=== PATIENT | male | born 1955 | race Asian ===

== ENCOUNTER 2016-07-27 21:15 | Emergency (ER) | payer OTHER ==
[~2016-07-27] VITALS: Ht 167.6 cm; Wt 61.9 kg
[~2016-07-27 21:15] MED LIST: ARIP15TA5 PO; GABA400C PO; NOV7030 SUBQ
[2016-07-27 21:22] VITALS: BP 90/60
--- NOTE | 2016-07-27 21:36 | NUR ---
TO ER BED 3
--- NOTE | 2016-07-27 21:40 | NUR ---
PT STATES HE HAS PAIN ALL OVER. PAIN 02/17 PT STATES HE IS DIABETES AND SCHIZOPHRENIC, DEVELOPEMENTALLY DELAYED BS 507, DR GARCIA NOTIFIED
[2016-07-27] MEDS ORDERED: MORPHINE SULFATE 4 MG/ML SYR IVP ONE (22:15)
[2016-07-27] MEDS ORDERED: ONDANSETRON 4 MG/2 ML VIAL IVP ONE (22:15)
[2016-07-27] MEDS ORDERED: NACL 0.9% 1,000 ML IV ONE (22:15)
--- NOTE | 2016-07-27 22:20 | NUR ---
Patient being evaluated by physician at bedside.
[2016-07-27 22:46] LABS: APPEARANCE,URINE HAZY (CLEAR); BILIRUBIN,URINE NEGATIVE (NEGATIVE); BLOOD, URINE NEGATIVE (NEGATIVE); COLOR,URINE YELLOW (YELLOW); LEUKOCYTE ESTERASE ,URINE NEGATIVE (NEGATIVE); NITRITE, URINE NEGATIVE (NEGATIVE); PH,URINE 5.5 (5.0-9.0); PROTEIN,URINE TRACE (NEGATIVE); UGLUCOSE 3+ (NEGATIVE); UROBILINOGEN,URINE 0.2 EU/dL (0.2 - 1)
[2016-07-27 23:09] LABS: ALBUMIN 3.6 g/dL (3.4-5.0); ANION GAP 9.9 (8-16); BASOPHILS # (AUTO) 0.1 K/uL (0.00-0.22); BASOPHILS % (AUTO) 2.7 % (0.0-2.0); CALCIUM 8.5 mg/dL (8.5-10.1); CARBON DIOXIDE 27.9 mmol/L (21-32); CREATININE 1.9 mg/dL (0.6-1.3); EOSINOPHILS # (AUTO) 0.1 K/uL (0-0.4); EOSINOPHILS % (AUTO) 3.4 % (0.0-4.0); HEMATOCRIT 38.5 % (36-52); HEMOGLOBIN 12.7 g/dL (12.0-18.0); LYMPHOCYTES # (AUTO) 1.2 K/uL (2.0-11.5); MEAN CORPUSCULAR HEMOGLOBIN 28 pg (27-31); MEAN CORPUSCULAR HGB CONC 33 g/dL (33-37); MEAN CORPUSCULAR VOLUME 85 fL (80-94); MONOCYTES # (AUTO) 0.3 K/uL (0.8-1.0); NEUTROPHILS # (AUTO) 2.5 K/uL (1.8-7.7); NEUTROPHILS % (AUTO) 59.9 % (42.2-75.2); PLATELET COUNT (AUTO) 210 K/uL (140-450); POTASSIUM 5.8 mmol/L (3.5-5.1); RED BLOOD CELL COUNT(AUTO) 4.56 MIL/uL (4.20-6.10); RED CELL DISTRIBUTION WIDTH 13.9 % (11.6-13.7); TOTAL BILIRUBIN 0.5 mg/dL (0.0-1.0); TOTAL PROTEIN, SERUM 7.1 g/dL (6.4-8.2); WHITE BLOOD COUNT (AUTO) 4.2 K/uL (4.8-10.8)
[2016-07-27] MEDS ORDERED: HYDROmorphone 1 MG/ML AMP IVP ONE (23:20)
[2016-07-27] MEDS ORDERED: NACL 0.9% 2,000 ML IV ONE (23:20)
[2016-07-27 23:25] LABS: BACTERIA,URINE OCCASSIONAL /HPF (None Seen); HYALINE CASTS, URINE 0-10 /LPF (None Seen); MUCUS,URINE 1+ /LPF (None Seen); RBC,URINE 0-5 (RARE) /HPF (0-5); SQUAMOUS EPITHELIAL CELL,UR 0-3 (FEW) /LPF (0-3 (FEW)); WBC,URINE 0-5 (RARE) /HPF (0-5)
[2016-07-27] MEDS ORDERED: INSULIN HUMAN REGULAR 100 UNITS/ML 10 ML VIAL IVP ONE (23:40)
[2016-07-28 01:41] LABS: ANION GAP 9.2 (8-16); CALCIUM 6.9 mg/dL (8.5-10.1); CARBON DIOXIDE 24.2 mmol/L (21-32); CREATININE 1.4 mg/dL (0.6-1.3); POTASSIUM 4.4 mmol/L (3.5-5.1)
--- NOTE | 2016-07-28 02:01 | NUR ---
IV removed, catheter intact and site benign. Applied folded 4x4 gauze and tape to stop bleeding.
[2016-07-28 02:11] VITALS: BP 136/79
--- NOTE | 2016-07-28 02:11 | NUR ---
Patient discharged with v/s stable. Written and verbal after care instructions given and explained. Patient alert, oriented and verbalized understanding of instructions. Ambulatory with steady gait. All questions addressed prior to discharge. ID band removed. Patient advised to follow up with PMD. Rx of NORCO 5/325MG given. Patient educated on indication of medication including possible reaction and side effects. Opportunity to ask questions provided and answered.
== END 2016-07-28 02:11 | disposition home or self-care (01) ==
LOC: MED 21:15
PROC: 3E033GC Introduction of Other Therapeutic Substance into Peripheral Vein, Percutaneous Approach (ICD-10-PCS; principal; 2016-07-27)
DX: E11.65 Type 2 diabetes mellitus with hyperglycemia (principal); I10 Essential (primary) hypertension; J45.909 Unspecified asthma, uncomplicated; F17.210 Nicotine dependence, cigarettes, uncomplicated; Z79.4 Long term (current) use of insulin
CPT/HCPCS: 36415; 80048; 80053; 81001; 82948; 83690; 85025; 96361; 96372; 96374; 96375; 99285; J1170; J1815; J2270; J2405; J7030

== ENCOUNTER 2016-09-01 17:03 | Emergency (ER) | payer OTHER ==
[~2016-09-01] VITALS: Ht 167.6 cm; Wt 61.2 kg
[2016-09-01 17:17] VITALS: BP 95/67
--- NOTE | 2016-09-01 22:30 | NUR ---
PATIENT LEFT WITHOUT BEING SEEN BY DR. SAVAGE. NO FURTHER CARE PROVIDED FOR PATIENT.
--- NOTE | 2016-09-01 22:30 | NUR ---
Ann hamilton in [facility] - 09/02/16 at 0227 by ANSHUL PATIENT LEFT WITHOUT BEING SEEN BY DR. GARCIA. NO FURTHER CARE PROVIDED FOR PATIENT.
== END 2016-09-01 22:30 | disposition left against medical advice (07) ==
LOC: MED 17:03
DX: R53.1 Weakness (principal); Z53.21 Procedure and treatment not carried out due to patient leaving prior to being seen by health care provider

== ENCOUNTER 2016-09-05 22:56 | Emergency (ER) | payer OTHER ==
[~2016-09-05] VITALS: Ht 167.6 cm; Wt 63.5 kg
[~2016-09-05 22:56] MED LIST changes: +ABILIFY15 M1 PO; -ARIP15TA5 PO; +CEPHALEXIN500 M2 PO; -GABA400C PO; +GABAPENTIN300 M2 PO; +HYDROCODONE APA PO; +NEURONTIN400 MG PO; +NORCO 5/325 MG1 TAB PO; -NOV7030 SUBQ; +NOVOLIN 70100 UNITS/ SUBQ; +OXYCONTIN10 MG PO; +PERCOCET 325 MG1 TA4 PO; +PERCOCET 5/3251 TAB PO; +SEROQUEL XR400 MG PO; +TRAMADOL50 MG PO
[2016-09-05 23:08] VITALS: BP 111/74
--- NOTE | 2016-09-06 00:55 | NUR ---
PATIENT AMBULATED TO ER BED 6.
--- NOTE | 2016-09-06 00:55 | NUR ---
PATIENT PRESENTS TO ED WITH C/O BODY ACHES ALL OVER X 4-5 MONTHS, 8/10 PAIN . PT STATES HE WAS DX WITH PANCREATITIS AND SINCE THEN DRANK 1 WEEK AGO 12OZ BEER. PT ALSO STATES HE HAS DIFF SEEINBG,PT DENIES N/V/D; SKIN IS PINK/WARM/DRY; AAOX4 WITH EVEN AND STEADY GAIT; LUNGS CLEAR BL; HR EVEN AND REGULAR; PT DENIES ANY FEVER, CP, SOB, OR COUGH AT THIS TIME; PATIENT STATES PAIN OF 8/10 AT THIS TIME; VSS; PATIENT POSITIONED FOR COMFORT; HOB ELEVATED; BEDRAILS UP X2; BED DOWN. ER MD MADE AWARE OF PT STATUS.
--- NOTE | 2016-09-06 01:19 | NUR ---
Patient being evaluated by physician at bedside.
[2016-09-06] MEDS ORDERED: NACL 0.9% 1,000 ML IV ONE (01:20)
[2016-09-06] MEDS ORDERED: KETOROLAC 30 MG/ML VIAL IVP ONE (01:20)
[2016-09-06] MEDS ORDERED: LORazepam 2 MG/ML VIAL IVP ONE (02:05)
[2016-09-06] MEDS ORDERED: diphenhydrAMINE 50 MG/ML VIAL IVP ONE (02:05)
[2016-09-06 03:14] VITALS: BP 113/63
--- NOTE | 2016-09-06 03:15 | NUR ---
Patient discharged with v/s stable. Written and verbal after care instructions given and explained. Patient alert, oriented and verbalized understanding of instructions. Ambulatory with steady gait. All questions addressed prior to discharge. ID band removed. Patient advised to follow up with PMD. Rx of TRAMADOL HYDROCHLORIDE given. Patient educated on indication of medication including possible reaction and side effects. Opportunity to ask questions provided and answered.
== END 2016-09-06 03:15 | disposition home or self-care (01) ==
LOC: MED 22:56
DX: B34.9 Viral infection, unspecified (principal); J45.909 Unspecified asthma, uncomplicated; E11.9 Type 2 diabetes mellitus without complications; I10 Essential (primary) hypertension; Z79.4 Long term (current) use of insulin
CPT/HCPCS: 36415; 80053; 82948; 83690; 85025; 85610; 85730; 96361; 96374; 96375; 99284; J1200; J1885; J2060

== ENCOUNTER 2016-09-06 04:06 | Emergency (ER) | payer OTHER ==
[~2016-09-06] VITALS: Ht 170.2 cm; Wt 60.8 kg
[2016-09-06 04:13] VITALS: BP 138/82
--- NOTE | 2016-09-06 04:26 | NUR ---
PATIENT BIB BLS TO ER BED 4. Addendum: 09/06/16 at 0708 by MEDDCV PATIENT BIB BLS AND PD TO ER BED 4.
--- NOTE | 2016-09-06 04:26 | NUR ---
61Y M ALEX C/O DRIVING WRONGWAY, PATIENT JUST D/C. STILL WITH BODYACHES. [place] pd was on scene.
[2016-09-06 06:41] VITALS: BP 142/87
--- NOTE | 2016-09-06 06:41 | NUR ---
Patient discharged with v/s stable. Written and verbal after care instructions given and explained. Patient verbalized understanding. Ambulatory with steady gait. All questions addressed prior to discharge. Advised to follow up with PMD.
== END 2016-09-06 06:41 | disposition home or self-care (01) ==
LOC: MED 04:06
DX: R46.89 Other symptoms and signs involving appearance and behavior (principal); J45.909 Unspecified asthma, uncomplicated; E11.9 Type 2 diabetes mellitus without complications; I10 Essential (primary) hypertension; Z79.4 Long term (current) use of insulin

== ENCOUNTER 2016-10-16 02:40 | Emergency (ER) | payer OTHER ==
[~2016-10-16] VITALS: Ht 167.6 cm; Wt 68.0 kg
[~2016-10-16 02:40] MED LIST changes: -ABILIFY15 M1 PO; +ARIP15TA5 PO; -CEPHALEXIN500 M2 PO; +GABA400C PO; -GABAPENTIN300 M2 PO; -HYDROCODONE APA PO; -NEURONTIN400 MG PO; -NORCO 5/325 MG1 TAB PO; +NOV7030 SUBQ; -NOVOLIN 70100 UNITS/ SUBQ; -OXYCONTIN10 MG PO; -PERCOCET 325 MG1 TA4 PO; -PERCOCET 5/3251 TAB PO; -SEROQUEL XR400 MG PO; -TRAMADOL50 MG PO
--- NOTE | 2016-10-16 02:43 | NUR ---
PT ALEX BLS. TAKEN TO BED 5
[2016-10-16 02:50] VITALS: BP 185/92
--- NOTE | 2016-10-16 02:50 | NUR ---
61Y M BIB [facility] C/O HAND AND FEET PAIN WITH HIGH BLOOD SUGAR 487MG/DL, HIGH BP 194/100.
[2016-10-16] MEDS ORDERED: NACL 0.9% 1,000 ML IV ONE (03:10)
[2016-10-16 03:20] LABS: BASOPHILS # (AUTO) 0.1 K/uL (0.00-0.22); BASOPHILS % (AUTO) 2.5 % (0.0-2.0); EOSINOPHILS # (AUTO) 0.3 K/uL (0-0.4); EOSINOPHILS % (AUTO) 7.2 % (0.0-4.0); HEMATOCRIT 32.8 % (36-52); HEMOGLOBIN 10.3 g/dL (12.0-18.0); LYMPHOCYTES # (AUTO) 0.8 K/uL (2.0-11.5); LYMPHOCYTES % (AUTO) 19.7 % (20.5-51.1); MEAN CORPUSCULAR HEMOGLOBIN 26 pg (27-31); MEAN CORPUSCULAR HGB CONC 32 g/dL (33-37); MEAN CORPUSCULAR VOLUME 83 fL (80-94); MONOCYTES # (AUTO) 0.2 K/uL (0.8-1.0); MONOCYTES % (AUTO) 5.6 % (1.7-9.3); NEUTROPHILS # (AUTO) 2.9 K/uL (1.8-7.7); PLATELET COUNT (AUTO) 218 K/uL (140-450); RED BLOOD CELL COUNT(AUTO) 3.95 MIL/uL (4.20-6.10); RED CELL DISTRIBUTION WIDTH 14.3 % (11.6-13.7); WHITE BLOOD COUNT (AUTO) 4.3 K/uL (4.8-10.8)
[2016-10-16 03:36] LABS: ALBUMIN 3.6 g/dL (3.4-5.0); ANION GAP 14.5 (8-16); CALCIUM 8.4 mg/dL (8.5-10.1); CARBON DIOXIDE 23.4 mmol/L (21-32); CREATININE 1.6 mg/dL (0.6-1.3); POTASSIUM 4.9 mmol/L (3.5-5.1); TOTAL BILIRUBIN 0.3 mg/dL (0.0-1.0); TOTAL PROTEIN, SERUM 7.4 g/dL (6.4-8.2)
--- NOTE | 2016-10-16 03:38 | NUR ---
Dr. Comer evaluating patient at bedside.
[2016-10-16] MEDS ORDERED: MORPHINE SULFATE 4 MG/ML SYR IVP ONE (03:55)
[2016-10-16] MEDS ORDERED: ENALAPRILAT 2.5 MG/2 ML VIAL IVP ONE (04:05)
--- NOTE | 2016-10-16 05:28 | NUR ---
[place] PD AT BEDSIDE AFTER PT CALLED [phone]
--- NOTE | 2016-10-16 05:30 | NUR ---
IV removed, catheter intact and site benign. Applied folded 4x4 gauze and tape to stop bleeding.
[2016-10-16 05:39] VITALS: BP 146/94
--- NOTE | 2016-10-16 05:39 | NUR ---
Patient discharged with v/s stable. Written and verbal after care instructions given and explained. Patient alert, oriented and verbalized understanding of instructions. Ambulatory with steady gait. All questions addressed prior to discharge. ID band removed. Patient advised to follow up with PMD. Rx of NORCO 5/325 given. Patient educated on indication of medication including possible reaction and side effects. Opportunity to ask questions provided and answered.
== END 2016-10-16 05:39 | disposition home or self-care (01) ==
LOC: MED 02:40
DX: E11.40 Type 2 diabetes mellitus with diabetic neuropathy, unspecified (principal); I10 Essential (primary) hypertension; J45.909 Unspecified asthma, uncomplicated; F17.200 Nicotine dependence, unspecified, uncomplicated
CPT/HCPCS: 36415; 80053; 81002; 82948; 83690; 85025; 96361; 96374; 96375; 99284; J2270; J3490

== ENCOUNTER 2016-10-16 08:40 | Emergency (ER) | payer OTHER ==
[~2016-10-16] VITALS: Ht 167.6 cm; Wt 68.0 kg
[2016-10-16 08:44] VITALS: BP 128/78
--- NOTE | 2016-10-16 08:50 | NUR ---
PATIENT PRESENTS TO ED WITH ADDI FEET PAIN X2 YS . PT STATES, HE LOST HIS SHOES AND DOES NOT WANT TO WALK] . DENIES N/V/D; SKIN IS PINK/WARM/DRY; AAOX4 WITH EVEN AND STEADY GAIT; LUNGS CLEAR BL; HR EVEN AND REGULAR; PT DENIES ANY FEVER, CP, SOB, OR COUGH AT THIS TIME; PATIENT STATES PAIN OF 6/10 AT THIS TIME; VSS; PATIENT POSITIONED FOR COMFORT; HOB ELEVATED; BEDRAILS UP X2; BED DOWN. ER MD MADE AWARE OF PT STATUS.
--- NOTE | 2016-10-16 08:55 | NUR ---
PT IS REFUSING ANALGESIC AT THIS TIME. REQUESTING FOR US TO CALL A TAXI FOR HIM.
--- NOTE | 2016-10-16 08:57 | NUR ---
PT IS ON HIS CELL PHONE CALLING FOR TAXI---FULL CLEAR SPEECH
--- NOTE | 2016-10-16 08:58 | NUR ---
PT CALLING HIS HEALTH CARRIER ASKING IF THEY WOULD PAY FOR TAXI---PT STATED HE CALLED [phone] THINKING THEY WOULD GIVE HIM RIDE BACK HOME OR TO THE HOSPITAL TO HAVE SOMEONE PAY FOR TAXI.---- TAXI INFORMATION PROVIDED TO PT. PT WAS GIVEN A BUS VOUCHER EARLIER IN HIS PREVIOUS VISIT TODAY BUT PT STATED HE DID NOT WANT BUS VOUCHER BUT A TAXI VOUCHER.
--- NOTE | 2016-10-16 09:05 | NUR ---
Patient discharged with v/s stable. Written and verbal after care instructions given and explained. Patient alert, oriented and verbalized understanding of instructions. with steady gait. All questions addressed prior to discharge. ID band removed. Patient advised to follow up with PMD. Rx of NEUROTIN given. Patient educated on indication of medication including possible reaction and side effects. Opportunity to ask questions provided and answered.
[2016-10-16 09:08] VITALS: BP 142/87
== END 2016-10-16 09:05 | disposition home or self-care (01) ==
LOC: MED 08:40
DX: G89.29 Other chronic pain (principal); M79.671 Pain in right foot; M79.672 Pain in left foot; E11.9 Type 2 diabetes mellitus without complications; J45.909 Unspecified asthma, uncomplicated; I10 Essential (primary) hypertension; Z88.6 Allergy status to analgesic agent
CPT/HCPCS: 99283

== ENCOUNTER 2016-10-21 23:14 | Emergency (ER) | payer OTHER ==
[~2016-10-21] VITALS: Ht 167.6 cm; Wt 68.0 kg
[2016-10-21 23:17] VITALS: BP 152/80
--- NOTE | 2016-10-22 00:14 | NUR ---
61Y M BIBA FOR BODY ACHES ALL OVER. PT STATES HE RAN OUT OF MEDICATION 2 DAYS. PT ALSO STATES HE SAW HIS PCP DR WERNER AND WAS GIVEN A REFERAL FOR PAIN SPECIALIST BUT MONTILLA NOT GONE; LUNGS CLEAR BL; HR EVEN AND REGULAR; PT DENIES ANY FEVER, CP, SOB, OR COUGH AT THIS TIME; PATIENT STATES PAIN OF 10/10 AT THIS TIME; VSS; PATIENT POSITIONED FOR COMFORT; HOB ELEVATED; BEDRAILS UP X2; BED DOWN. ER MD MADE AWARE OF PT STATUS.
--- NOTE | 2016-10-22 00:14 | NUR ---
TO ER BED OF2 FROM ER LOBBY
--- NOTE | 2016-10-22 00:55 | NUR ---
Patient being evaluated by physician.
[2016-10-22] MEDS: oxyCODONE 10 MG TABER PO ONE (01:14)
[2016-10-22 01:35] VITALS: BP 137/94
--- NOTE | 2016-10-22 01:35 | NUR ---
Patient discharged with v/s stable. Written and verbal after care instructions given and explained. Patient verbalized understanding. Wheel Chair Assisted TO ER AIDEN PT STATES HE WILL CALL TAXI . All questions addressed prior to discharge. Advised to follow up with PMD.
== END 2016-10-22 01:35 | disposition home or self-care (01) ==
LOC: MED 23:14
DX: G89.29 Other chronic pain (principal); I10 Essential (primary) hypertension; J45.909 Unspecified asthma, uncomplicated; E11.9 Type 2 diabetes mellitus without complications
CPT/HCPCS: 99283

== ENCOUNTER 2016-11-20 17:35 | Emergency (ER) | payer OTHER ==
[~2016-11-20] VITALS: Ht 167.6 cm; Wt 68.0 kg
--- NOTE | 2016-11-20 17:35 | NUR ---
Patient was BIBA at this time.
[2016-11-20 17:36] VITALS: BP 124/69
--- NOTE | 2016-11-20 17:53 | NUR ---
Patient taken to bed 06 via gurney per EMS.
--- NOTE | 2016-11-20 18:20 | NUR ---
PATIENT BIBA FROM [facility] C/O "FULL BODY PAIN" X TODAY; PT STATES NO PAIN OR INJURY AT THIS TIME. HX: DM TYPE I, SCHIZOPHRENIA . DENIES N/V/D; SKIN IS PINK/WARM/DRY; AAOX4 WITH EVEN AND STEADY GAIT; LUNGS CLEAR BL; HR EVEN AND REGULAR; PT DENIES ANY FEVER, CP, SOB, OR COUGH AT THIS TIME; PATIENT STATES PAIN OF 8/10 AT THIS TIME; PATIENT POSITIONED FOR COMFORT; HOB ELEVATED; BEDRAILS UP X2; BED DOWN. ALL MONITORS IN PLACED.
--- NOTE | 2016-11-20 18:24 | NUR ---
DR CREWS AT BEDSIDE.
[2016-11-20] MEDS ORDERED: NACL 0.9% 1,000 ML IV ONE ×3 (18:35)
[2016-11-20] MEDS ORDERED: HYDROmorphone 1 MG/ML AMP IVP ONE (18:35)
[2016-11-20] MEDS ORDERED: ONDANSETRON 4 MG/2 ML VIAL IVP ONE (18:35)
[2016-11-20 18:59] LABS: BASOPHILS # (AUTO) 0.1 K/uL (0.00-0.22); BASOPHILS % (AUTO) 1.9 % (0.0-2.0); EOSINOPHILS # (AUTO) 0.3 K/uL (0-0.4); EOSINOPHILS % (AUTO) 5.7 % (0.0-4.0); HEMATOCRIT 34.1 % (36-52); HEMOGLOBIN 11.1 g/dL (12.0-18.0); LYMPHOCYTES % (AUTO) 21.4 % (20.5-51.1); MEAN CORPUSCULAR HEMOGLOBIN 27 pg (27-31); MEAN CORPUSCULAR HGB CONC 33 g/dL (33-37); MEAN CORPUSCULAR VOLUME 83 fL (80-94); MONOCYTES # (AUTO) 0.2 K/uL (0.8-1.0); NEUTROPHILS # (AUTO) 3.2 K/uL (1.8-7.7); PLATELET COUNT (AUTO) 184 K/uL (140-450); RED BLOOD CELL COUNT(AUTO) 4.12 MIL/uL (4.20-6.10); RED CELL DISTRIBUTION WIDTH 15.2 % (11.6-13.7); WHITE BLOOD COUNT (AUTO) 4.8 K/uL (4.8-10.8)
--- NOTE | 2016-11-20 19:11 | NUR ---
Pt report given to YVON. Transfer of care at this time.
[2016-11-20 19:19] LABS: LACTIC ACID 1.5 mmol/L (0.4-2.0)
[2016-11-20 19:22] LABS: ALBUMIN 3.6 g/dL (3.4-5.0); ANION GAP 14.5 (8-16); CALCIUM 8.3 mg/dL (8.5-10.1); CARBON DIOXIDE 25.4 mmol/L (21-32); CREATININE 1.7 mg/dL (0.7-1.3); POTASSIUM 4.9 mmol/L (3.5-5.1); TOTAL BILIRUBIN 0.2 mg/dL (0.0-1.0); TOTAL PROTEIN, SERUM 7.2 g/dL (6.4-8.2)
[2016-11-20 19:57] LABS: APPEARANCE,URINE CLEAR (CLEAR); BILIRUBIN,URINE NEGATIVE (NEGATIVE); BLOOD, URINE NEGATIVE (NEGATIVE); COLOR,URINE YELLOW (YELLOW); LEUKOCYTE ESTERASE ,URINE NEGATIVE (NEGATIVE); NITRITE, URINE NEGATIVE (NEGATIVE); PH,URINE 5.5 (5.0-9.0); PROTEIN,URINE NEGATIVE (NEGATIVE); UGLUCOSE 3+ (NEGATIVE); UROBILINOGEN,URINE 0.2 EU/dL (0.2 - 1)
[2016-11-20 20:09] LABS: BACTERIA,URINE RARE /HPF (None Seen); RBC,URINE 0-3 /HPF (0-5); SQUAMOUS EPITHELIAL CELL,UR None Seen /LPF (0-3 (FEW)); WBC,URINE 0-3 /HPF (0-5)
--- NOTE | 2016-11-20 20:14 | NUR ---
Dr. Platt speaking with patient at bedside.
--- NOTE | 2016-11-20 20:21 | NUR ---
Dr. Comer at bedside.
--- NOTE | 2016-11-20 20:35 | NUR ---
Patient discharged with v/s stable. Written and verbal after care instructions given and explained. Patient alert, oriented and verbalized understanding of instructions. Ambulatory with steady gait. All questions addressed prior to discharge. ID band removed. Patient advised to follow up with PMD. Rx of NOVOLOG FLEXPEN SYRINGE 100 UNIT/ML given. Patient educated on indication of medication including possible reaction and side effects. Opportunity to ask questions provided and answered.
--- NOTE | 2016-11-20 20:35 | NUR ---
Chart checked and completed. The patient's care was reviewed and supervised by Eli Matias RN.
[2016-11-20 20:38] VITALS: BP 123/69
== END 2016-11-20 20:35 | disposition home or self-care (01) ==
LOC: MED 17:35
DX: E11.65 Type 2 diabetes mellitus with hyperglycemia (principal); J45.909 Unspecified asthma, uncomplicated; I10 Essential (primary) hypertension; F20.9 Schizophrenia, unspecified; Z79.4 Long term (current) use of insulin; Z88.8 Allergy status to other drugs, medicaments and biological substances; Z79.899 Other long term (current) drug therapy
CPT/HCPCS: 36415; 71010; 80053; 81001; 82948; 83605; 84484; 85025; 85651; 87040; 96361; 96374; 96375; 99285; J1170; J2405

== ENCOUNTER 2017-03-29 00:43 | Emergency (ER) | payer OTHER ==
[~2017-03-29] VITALS: Ht 167.6 cm; Wt 70.8 kg
[~2017-03-29 00:43] MED LIST changes: +ARIP15TA1 PO; -ARIP15TA5 PO
[2017-03-29 00:57] VITALS: BP 113/85
--- NOTE | 2017-03-29 01:56 | NUR ---
PT IN BED 4.
[2017-03-29] MEDS ORDERED: MORPHINE SULFATE 10 MG/ML SYR IM ONE (02:00)
--- NOTE | 2017-03-29 02:00 | NUR ---
62/M BIBA W C/O GENERALIZED BODY ACHES X 3 DAYS, NONPROVOKED, PT STATES "I DONT KNOW WHY IM HURTING". DENIES ANY TRAUMA/FALLS. DENIES N/V/D, FEVER, SOB/COUGH, CP, ABD PAIN. PMH: DM, PERIPHERAL NEUROPATHY. DENIES OTC FOR SYMPTOMS.
[2017-03-29 02:22] LABS: HEMATOCRIT 33.8 % (36-52); HEMOGLOBIN 10.9 g/dL (12.0-18.0); MEAN CORPUSCULAR HEMOGLOBIN 28 pg (27-31); MEAN CORPUSCULAR HGB CONC 32 g/dL (33-37); MEAN CORPUSCULAR VOLUME 86 fL (80-94); PLATELET COUNT (AUTO) 217 K/uL (140-450); RED BLOOD CELL COUNT(AUTO) 3.96 MIL/uL (4.20-6.10); RED CELL DISTRIBUTION WIDTH 16.7 % (11.6-13.7); WHITE BLOOD COUNT (AUTO) 4.7 K/uL (4.8-10.8)
[2017-03-29 02:35] LABS: CARBON DIOXIDE 28.7 mmol/L (21-32); CREATININE 1.3 mg/dL (0.7-1.3); POTASSIUM 4.7 mmol/L (3.5-5.1)
[2017-03-29 02:42] LABS: ALBUMIN 3.9 g/dL (3.4-5.0); EOSINOPHILS % (MANUAL) 4 % (0-4); LYMPHOCYTES % (MANUAL) 26 % (20-46); MONOCYTES % (MANUAL) 5 % (5-12); TOTAL BILIRUBIN 0.5 mg/dL (0.0-1.0)
[2017-03-29 03:09] LABS: APPEARANCE,URINE CLEAR (CLEAR); BILIRUBIN,URINE NEGATIVE (NEGATIVE); BLOOD, URINE NEGATIVE (NEGATIVE); COLOR,URINE YELLOW (YELLOW); LEUKOCYTE ESTERASE ,URINE NEGATIVE (NEGATIVE); NITRITE, URINE NEGATIVE (NEGATIVE); PH,URINE 5.5 (5.0-9.0); UGLUCOSE NEGATIVE (NEGATIVE)
--- NOTE | 2017-03-29 03:15 | NUR ---
Patient discharged with v/s stable. Written and verbal after care instructions given and explained. Patient alert, oriented and verbalized understanding of instructions. Ambulatory with steady gait. All questions addressed prior to discharge. ID band removed. Patient advised to follow up with PMD. Rx of GABAPENTIN given. Patient educated on indication of medication including possible reaction and side effects. Opportunity to ask questions provided and answered.
[2017-03-29 03:22] VITALS: BP 128/78
[2017-03-29 03:25] LABS: RBC,URINE 0-5 (RARE) /HPF (0-5); WBC,URINE 0-5 (RARE) /HPF (0-5)
[2017-03-29 03:26] LABS: HYALINE CASTS, URINE 0-10 /LPF (None Seen)
== END 2017-03-29 03:15 | disposition home or self-care (01) ==
LOC: MED 00:43
DX: G62.9 Polyneuropathy, unspecified (principal); E11.9 Type 2 diabetes mellitus without complications; J45.909 Unspecified asthma, uncomplicated; I10 Essential (primary) hypertension; Z79.899 Other long term (current) drug therapy; Z88.8 Allergy status to other drugs, medicaments and biological substances
CPT/HCPCS: 36415; 80053; 81001; 85025; 87086; 96372; 99284; J2270

== ENCOUNTER 2017-04-24 01:20 | Emergency (ER) | payer OTHER ==
[~2017-04-24] VITALS: Ht 167.6 cm; Wt 68.7 kg
[2017-04-24 01:26] VITALS: BP 188/95
[2017-04-24 01:27] VITALS: BP 180/99
--- NOTE | 2017-04-24 03:35 | NUR ---
Pt ambulated to bed 12.
--- NOTE | 2017-04-24 03:35 | NUR ---
Ann hamilton in [facility] - 04/24/17 at 0425 by [facility] Patient being evaluated by Dr. Smith at bedside.
--- NOTE | 2017-04-24 03:35 | NUR ---
62/M BIBA FOR PAIN TO ADDI FINGERTIPS AND BLE, NONTRAUMATIC, CHRONIC PAIN X YEARS. PT REPORTS HE HAS PMD APPOINTMENT IN 3 DAYS, BUT HE CANNOT WAIT FOR MEDICATION REFILL. STATES " I TOOK 100MG IBUPROFEN AT 1830 YESTERDAY AND NORCO 2300, AND I AM STILL IN A LOT OF PAIN". DENIES CP/SOB, N/V/D. PMH: ASTHMA, DM, HTN
--- NOTE | 2017-04-24 03:40 | NUR ---
Patient being evaluated by physician at bedside.
[2017-04-24 04:18] VITALS: BP 167/88
== END 2017-04-24 04:19 | disposition home or self-care (01) ==
LOC: MED 01:20
DX: Z76.0 Encounter for issue of repeat prescription (principal); G89.4 Chronic pain syndrome; J45.909 Unspecified asthma, uncomplicated; E11.9 Type 2 diabetes mellitus without complications; I10 Essential (primary) hypertension; Z88.6 Allergy status to analgesic agent
CPT/HCPCS: 99283

== ENCOUNTER 2017-04-24 09:32 | Emergency (ER) | payer OTHER ==
[~2017-04-24] VITALS: Ht 172.7 cm; Wt 79.4 kg
--- NOTE | 2017-04-24 09:32 | NUR ---
Patient was BIBA and taken to bed 02 via gurney per EMS.
[2017-04-24 09:40] VITALS: BP 156/88
[2017-04-24] MEDS ORDERED: ACETAMINOPHEN 325 MG TAB PO ONE (10:10)
--- NOTE | 2017-04-24 11:03 | NUR ---
PT REFUSED TO DO AN ACUTE;EPLAINED TO PT THAT WE NEED TO CHECK IT BUT PT STILL REFUSES;ER NOTIFIED;
[2017-04-24 11:14] VITALS: BP 158/94
--- NOTE | 2017-04-24 11:16 | NUR ---
HOme with [facility] and review rx with pt as well pt states that he understands, ER MD at bedside prior to pt going home in stable condition.
--- NOTE | 2017-04-24 11:23 | NUR ---
Patient discharged with v/s stable. Written and verbal after care instructions given and explained. Patient alert, oriented and verbalized understanding of instructions. Ambulatory with . All questions addressed prior to discharge. ID band removed. Patient advised to follow up with PMD. Rx of tramdol 50mg given. Patient educated on indication of medication including possible reaction and side effects. Opportunity to ask questions provided and answered.
== END 2017-04-24 11:14 | disposition home or self-care (01) ==
LOC: MED 09:32
DX: R53.1 Weakness (principal); E11.9 Type 2 diabetes mellitus without complications; Z79.899 Other long term (current) drug therapy; Z88.8 Allergy status to other drugs, medicaments and biological substances
CPT/HCPCS: 99283

== ENCOUNTER 2017-05-15 17:15 | Emergency (ER) | payer OTHER ==
[~2017-05-15] VITALS: Ht 167.6 cm; Wt 68.9 kg
[2017-05-15 17:30] VITALS: BP 110/66
--- NOTE | 2017-05-15 17:52 | NUR ---
PATIENT STILL WC
--- NOTE | 2017-05-15 18:00 | NUR ---
ERMD ASSESSING PATIENT IN HALLWAY/
[2017-05-15 18:49] LABS: BASOPHILS # (AUTO) 0.2 K/uL (0.00-0.22); EOSINOPHILS # (AUTO) 0.3 K/uL (0-0.4); HEMATOCRIT 34.3 % (36-52); HEMOGLOBIN 11.3 g/dL (12.0-18.0); LYMPHOCYTES # (AUTO) 1.3 K/uL (2.0-11.5); MEAN CORPUSCULAR HEMOGLOBIN 28 pg (27-31); MEAN CORPUSCULAR HGB CONC 33 g/dL (33-37); MEAN CORPUSCULAR VOLUME 86 fL (80-94); MONOCYTES # (AUTO) 0.3 K/uL (0.8-1.0); NEUTROPHILS # (AUTO) 4.1 K/uL (1.8-7.7); PLATELET COUNT (AUTO) 241 K/uL (140-450); RED BLOOD CELL COUNT(AUTO) 3.98 MIL/uL (4.20-6.10); RED CELL DISTRIBUTION WIDTH 14.5 % (11.6-13.7); WHITE BLOOD COUNT (AUTO) 6.2 K/uL (4.8-10.8)
--- NOTE | 2017-05-15 19:00 | NUR ---
ekg done reviewed by arturo
[2017-05-15 19:04] LABS: ANION GAP 14.2 (8-16); CARBON DIOXIDE 28.8 mmol/L (21-32); CREATININE 1.9 mg/dL (0.7-1.3)
[2017-05-15 19:07] LABS: PROTHROMBIN TIME 9.9 secs (10.8-13.4)
[2017-05-15 19:18] LABS: MAGNESIUM 1.8 mg/dL (1.8-2.4); THYROID STIMULATING HORMONE 1.46 uIU/mL (0.34-3.74); TOTAL BILIRUBIN 0.2 mg/dL (0.0-1.0)
--- NOTE | 2017-05-15 19:30 | NUR ---
PATIENT ELOPED FROM FACILITY. DISCHARGE INSTRUCTIONS NOT GIVEN TO PATIENT. DR. De La Garza NOTIFIED.
[2017-05-15] MEDS ORDERED: traMADol 50 MG TAB PO ONE (19:50)
[2017-05-15 20:25] LABS: APPEARANCE,URINE CLEAR (CLEAR); BILIRUBIN,URINE NEGATIVE (NEGATIVE); BLOOD, URINE NEGATIVE (NEGATIVE); COLOR,URINE ORANGE (YELLOW); LEUKOCYTE ESTERASE ,URINE NEGATIVE (NEGATIVE); NITRITE, URINE NEGATIVE (NEGATIVE); PH,URINE 5.5 (5.0-9.0); UGLUCOSE 1+ (NEGATIVE)
== END 2017-05-15 19:30 | disposition left against medical advice (07) ==
LOC: MED 17:15
DX: M79.672 Pain in left foot (principal); M79.671 Pain in right foot; E11.40 Type 2 diabetes mellitus with diabetic neuropathy, unspecified; E11.22 Type 2 diabetes mellitus with diabetic chronic kidney disease; N18.9 Chronic kidney disease, unspecified; Z79.899 Other long term (current) drug therapy; Z88.8 Allergy status to other drugs, medicaments and biological substances
CPT/HCPCS: 36415; 80053; 81003; 82948; 83735; 84443; 85025; 85610; 85730; 93005; 99285

== ENCOUNTER 2017-06-04 17:00 | Emergency (ER) | payer OTHER ==
[~2017-06-04] VITALS: Ht 162.6 cm; Wt 71.2 kg
[2017-06-04 17:15] VITALS: BP 178/94
--- NOTE | 2017-06-04 17:19 | NUR ---
Patient BIBA to bed 4 at this time.
--- NOTE | 2017-06-04 17:24 | NUR ---
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 pt seen at [facility] x 2 days ago. pt sts he has fx right rib. Pt also reports he is constipated and ran out of his "norco pill" that he was prescribed 2 days ago. hx--htn, CLAIMED I AM NOT GOING HOME UNTIL YOU HELP ME WITH MY CONSTIPATION, SKIN WARM TO TOUCH RESP. EVEN AND UNLABORED, PT AAO, PAIN 9/10 RIBS,DENIES N/V/D, NO CHEST PAON, NO SOB.
--- NOTE | 2017-06-04 17:47 | NUR ---
PATIENT MOVED TO OF#4
--- NOTE | 2017-06-04 18:05 | NUR ---
PT SITTING IN WHEELCHAIR NOTED SMALL BRUISE REDDISH ON BACK AND NOTED ALSO DRY SCAB ON LEFT ELBOW
--- NOTE | 2017-06-04 18:19 | NUR ---
DR. PERDUE AT BEDSIDE
--- NOTE | 2017-06-04 18:41 | NUR ---
PT SITTING IN CHAIR CLAIMED DID THE DOCTOR RELEASE ME YET EXPLAINED STILL WORKING ON HIS PAPER WORKS
[2017-06-04 19:09] VITALS: BP 155/93
--- NOTE | 2017-06-04 19:10 | NUR ---
Patient discharged with v/s stable. Written and verbal after care instructions given and explained. Patient alert, oriented and verbalized understanding of instructions. Ambulatory with steady gait. All questions addressed prior to discharge. ID band removed. Patient advised to follow up with PMD. Rx of COLACE,MIRALAX,MAGNESIUM CITRATE given. Patient educated on indication of medication including possible reaction and side effects. Opportunity to ask questions provided and answered. PER PT HE WILL TAKE INSULIN WHEN HE GO HOME.
== END 2017-06-04 19:10 | disposition home or self-care (01) ==
LOC: MED 17:00
DX: K59.00 Constipation, unspecified (principal); E11.9 Type 2 diabetes mellitus without complications; Z88.6 Allergy status to analgesic agent
CPT/HCPCS: 82948; 99283

== ENCOUNTER 2017-06-22 18:46 | Emergency (ER) | payer OTHER ==
[~2017-06-22] VITALS: Ht 165.1 cm; Wt 68.6 kg
[2017-06-22 19:29] VITALS: BP 212/95
--- NOTE | 2017-06-22 19:37 | NUR ---
PT AMBULATED TO ER BED 03
--- NOTE | 2017-06-22 20:01 | NUR ---
62 Y/O M W/C/O HEADACHE/BODY ACHES/CHEST PAIN. PT LAYING IN BED MOANING, RESTLESS, AAO X3, BUT HAS FLIGHT OF THOUGHT, CONFUSED. PT DENIES TRAUMA TO HEAD OR LOC. MED HX DM, SCHIZOPHRENIA, GOUT, PANCREATITIS.
--- NOTE | 2017-06-22 20:10 | NUR ---
PT B/P ELEVATED, ER MADE AWARE, WILL FOLLOW UP W/ ANY NEW ORDERS.
[2017-06-22] MEDS ORDERED: LORazepam 2 MG/ML VIAL IVP ONE (20:15)
[2017-06-22 20:35] LABS: BASOPHILS # (AUTO) 0.1 K/uL (0.00-0.22); BASOPHILS % (AUTO) 1.4 % (0.0-2.0); EOSINOPHILS % (AUTO) 0.3 % (0.0-4.0); HEMOGLOBIN 11.8 g/dL (12.0-18.0); LYMPHOCYTES # (AUTO) 0.4 K/uL (2.0-11.5); LYMPHOCYTES % (AUTO) 6.7 % (20.5-51.1); MEAN CORPUSCULAR HEMOGLOBIN 28 pg (27-31); MEAN CORPUSCULAR HGB CONC 33 g/dL (33-37); MEAN CORPUSCULAR VOLUME 85 fL (80-94); MONOCYTES # (AUTO) 0.2 K/uL (0.8-1.0); MONOCYTES % (AUTO) 3.1 % (1.7-9.3); NEUTROPHILS % (AUTO) 88.5 % (42.2-75.2); PLATELET COUNT (AUTO) 218 K/uL (140-450); RED BLOOD CELL COUNT(AUTO) 4.25 MIL/uL (4.20-6.10); RED CELL DISTRIBUTION WIDTH 13.9 % (11.6-13.7); WHITE BLOOD COUNT (AUTO) 6.7 K/uL (4.8-10.8)
[2017-06-22 20:45] LABS: CARBON DIOXIDE 28.4 mmol/L (21-32); CREATININE 1.1 mg/dL (0.7-1.3); POTASSIUM 4.4 mmol/L (3.5-5.1)
[2017-06-22 20:57] LABS: TOTAL BILIRUBIN 0.4 mg/dL (0.0-1.0)
[2017-06-22] MEDS ORDERED: HYDROcodone/APAP 10/325 MG 1 TAB TAB PO STA (21:17)
[2017-06-22] MEDS ORDERED: HALOPERIDOL 5 MG TAB PO SCH (21:20)
--- NOTE | 2017-06-22 22:02 | NUR ---
Patient discharged with v/s stable. Written and verbal after care instructions given and explained. Patient alert, oriented and verbalized understanding of instructions. Wheel Chair Assisted with by caregiver. All questions addressed prior to discharge. ID band removed. Patient advised to follow up with PMD. Rx of ATIVAN, NORCO, GABAPENTIN given. Patient educated on indication of medication including possible reaction and side effects. Opportunity to ask questions provided and answered. Addendum: 06/22/17 at 2204 by [employer] PT HAS CELL PHONE AND STATES HIS LAND WILL BE GIVING HIM A RIDE HOME.
[2017-06-22 22:03] VITALS: BP 187/88
== END 2017-06-22 22:02 | disposition home or self-care (01) ==
LOC: MED 18:46
DX: R51 Headache (principal); I10 Essential (primary) hypertension; E11.9 Type 2 diabetes mellitus without complications; F20.9 Schizophrenia, unspecified; Z88.8 Allergy status to other drugs, medicaments and biological substances; Z79.899 Other long term (current) drug therapy; Z79.4 Long term (current) use of insulin
CPT/HCPCS: 36415; 71045; 80053; 83690; 85025; 93005; 96374; 99285; J2060; Q0092

== ENCOUNTER 2017-06-24 03:25 | Emergency (ER) | payer OTHER ==
[~2017-06-24] VITALS: Ht 172.7 cm; Wt 63.5 kg
--- NOTE | 2017-06-24 03:25 | NUR ---
62/M BIBA C/O MONTILLA X6 HOURS. PER EMS REPORT, PT WAS YELLING IN HIS HOUSE, NEXT DOOR NEIGHBOR CALLED 911. PATIENT C/O 10/10 BODYACHES AND PAIN DENIES ANY TRAUMA/INJURY. GCS 15 A&OX4. ABRASIAN TO FOREHEAD. +ETOH. DENIES VISUAL DISTURBANCES, N/V. PMH DM, CHRONIC PAIN
--- NOTE | 2017-06-24 03:25 | NUR ---
BIBA TO ER BED 10
[2017-06-24 03:30] VITALS: BP 157/86
[2017-06-24] MEDS ORDERED: LORazepam 2 MG/ML VIAL IVP ONE (03:40)
[2017-06-24] MEDS ORDERED: MULTIVITAMIN-12 10 ML, THIAMINE 100 MG, MAGNESIUM SULFATE 50% 2,000 MG, FOLIC ACID 5 MG... IV ONE ×5 (03:40)
[2017-06-24] MEDS ORDERED: THIAMINE 200 MG/2 ML VIAL ONE (03:42)
[2017-06-24] MEDS ORDERED: MULTIVITAMIN-12 10 ML VIAL IV ONE (03:42)
[2017-06-24] MEDS ORDERED: FOLIC ACID 5 MG/ML SYR ONE (03:42)
[2017-06-24] MEDS ORDERED: MAGNESIUM SULFATE 50% 1000 MG/2 ML VIAL IV ONE ×2 (03:42→03:56)
[2017-06-24 04:11] LABS: BARBITURATE, URINE NEG. ng/ml (NEG <=200); COCAINE, URINE NEG. ng/mL (NEG <=300); OPIATE, URINE POS. ng/mL (NEG <=2000)
--- NOTE | 2017-06-24 04:15 | NUR ---
PT TAKEN TO CT
[2017-06-24 04:16] LABS: CARBON DIOXIDE 23.5 mmol/L (21-32); CHLORIDE 103 mmol/L (98-107); CREATININE 1.4 mg/dL (0.7-1.3); GFR ARICAN-AMERICAN 66 mL/min (>90); GLUCOSE 170 mg/dL (74-106); POTASSIUM 3.5 mmol/L (3.5-5.1); SODIUM SERUM 142 mmol/L (136-145); UREA NITROGEN, BLOOD 25 mg/dL (7-18)
[2017-06-24 04:20] LABS: HEMATOCRIT 35.1 % (36-52); HEMOGLOBIN 11.4 g/dL (12.0-18.0); MEAN CORPUSCULAR HEMOGLOBIN 28 pg (27-31); MEAN CORPUSCULAR HGB CONC 33 g/dL (33-37); MEAN CORPUSCULAR VOLUME 85 fL (80-94); PLATELET COUNT (AUTO) 219 K/uL (140-450); RED BLOOD CELL COUNT(AUTO) 4.13 MIL/uL (4.20-6.10); RED CELL DISTRIBUTION WIDTH 14.8 % (11.6-13.7); WHITE BLOOD COUNT (AUTO) 6.3 K/uL (4.8-10.8)
[2017-06-24 04:21] LABS: ALBUMIN 3.8 g/dL (3.4-5.0); ASPARTATE AMINOTRANSFERASE 29 U/L (15-37); BASOPHILS % (AUTO) 0.5 % (0.0-2.0); EOSINOPHILS % (AUTO) 0.4 % (0.0-4.0); LYMPHOCYTES # (AUTO) 1.2 K/uL (2.0-11.5); LYMPHOCYTES % (AUTO) 19.1 % (20.5-51.1); MONOCYTES # (AUTO) 0.5 K/uL (0.8-1.0); MONOCYTES % (AUTO) 7.2 % (1.7-9.3); NEUTROPHILS # (AUTO) 4.5 K/uL (1.8-7.7); NEUTROPHILS % (AUTO) 72.8 % (42.2-75.2); TOTAL BILIRUBIN 0.3 mg/dL (0.0-1.0)
[2017-06-24 04:22] LABS: BENZODIAZEPINE, URINE NEG. ng/mL (NEG <=200); CANNABINOID, URINE NEG. ng/mL (NEG <=50); PHENCYCLIDINE SCREEN,URINE NEG. ng/mL (NEG <=25)
[2017-06-24 04:23] LABS: ACETAMINOPHEN < 0.5 ug/ml (10-30); SALICYLATE < 2.8 mg/dL (2.8-20.0)
--- NOTE | 2017-06-24 04:57 | NUR ---
PT FOUND ON THE FLOOR NEXT TO BEDSIDE, GCS 15, STATES "I NEEDED GET OUT BED TO BE IN LESS PAIN". ER MD SAVAGE AT BEDSIDE EVALUATED PT, NO APAPRENT SIGNS OF INJURY AT THIS TIME. PT STOOD UP AND AMBULATED AND ASSISTED BACK TO BED. VSS. PATIENT POSITIONED FOR COMFORT; HOB ELEVATED; BEDRAILS UP X2; BED DOWN. ER MD MADE AWARE OF PT STATUS. PT NEAR NURSING STATION
[2017-06-24] MEDS ORDERED: HALOPERIDOL IM 5 MG/ML VIAL IM ONE (05:10)
--- NOTE | 2017-06-24 05:34 | NUR ---
Patient appears to be resting comfortably in bed. Vital Signs within normal limits. Respirations even and unlabored.
[2017-06-24] MEDS ORDERED: hydrALAZINE 20 MG/ML VIAL IVP ONE (05:45)
--- NOTE | 2017-06-24 07:17 | NUR ---
Pt report given to GARLAND BONILLA. Transfer of care at this time.
--- NOTE | 2017-06-24 07:18 | NUR ---
PT LYING ON BED;W/ BANANA BAG INFUSING WELL AT RT WRIST;NAD;WILL CONTINUE TO MONITOR PT;
--- NOTE | 2017-06-24 07:35 | NUR ---
TRIED TO CONTACT DAMIONIY MEMBER 3 X BUT NO ONE IS ANSWERING;WILL TRY TO CONTACT PT'S RELATIVE.
--- NOTE | 2017-06-24 07:43 | NUR ---
PT IN PENDING DC BUT PT STILL UNBALE TO COMPREHEND COMMAND;TRIED TO WOKE UP PT;PT STILL LETHARGIC; CHARGE NUTRSE NOTIFIED;
[2017-06-24] MEDS ORDERED: BACITRACIN OINT 500 UNITS/GM PKT TP ONE (08:17)
--- NOTE | 2017-06-24 08:43 | NUR ---
INFORMED ER ABOUT PT'S CONDITION;ER MD SAID "CALL RELATIVES TO WIRE PULLER PT BUT IF NO ONE CAN PICK HIM LET HIM TAKE A NAP FOR A WHILE"WILL CONTINUE TO MONITOR PT.
--- NOTE | 2017-06-24 08:51 | NUR ---
TRIED TO CONTACT REALATIVE BUT UNABLE T CONNECT;
--- NOTE | 2017-06-24 09:15 | NUR ---
went to restroom accompanied by tech.
--- NOTE | 2017-06-24 09:52 | NUR ---
ABLE TO SPOKE TO DAUGHTER RNO, STATED SHE CAN NOT BIOMEDICAL EQUIPMENT TECHNICIAN HER FATHER SHE IS WORKING. PATIENT STILL LETHARGIC,UNABLE TO GIVE ME HIS LAND LADY PHONE NUMBER. ERMD MADE AWARE
--- NOTE | 2017-06-24 09:55 | NUR ---
Ann hamilton in [facility] - 06/24/17 at 1021 by SINDY still unable to cantact relative;
--- NOTE | 2017-06-24 10:37 | NUR ---
LEFT MESSAGE DAUGHTER TO COME SLASHER TENDER HELPER PATIENT FOR DISCHARGE
--- NOTE | 2017-06-24 10:41 | NUR ---
PT STILL LETHARGIC;ALL MONITORS IN PLACED;WILL CONTINUE TO MONITOR;
--- NOTE | 2017-06-24 11:00 | NUR ---
LEFT MESSAGE TO NATE SOLIS LADIam REGARDING PATIENTS DISCHARGE TO COME MOTOR VEHICLE INSPECTOR PATIENT. [phone]
--- NOTE | 2017-06-24 11:35 | NUR ---
PT STILL LETHARGIC;ANSWERS SOME QUESTION;GAVE SONIDO PHONE NUMBER;WILL TRY TO CONTACT HER;ALL MONITORS IN PLACED;WILL CONTINUE TO MONITOR.
--- NOTE | 2017-06-24 12:32 | NUR ---
PT ATE 100% OF HIS FOOD;
--- NOTE | 2017-06-24 12:45 | NUR ---
AFTER EATING;PT FALL ASLEEP;TRIED TO WOKE UP PT;PT STILL LETHARGIC;STILL UNABLE TO COMPREHEND AND UNABLE TO ANSWER SOME QUESTIONS;
--- NOTE | 2017-06-24 12:46 | NUR ---
SPOKE TO DR. DEWEY, THE SECOND TIME FOR POSSIBLE ADM. WILL REPEAT BLOOD ALCOHOL LEVEL FIRST
--- NOTE | 2017-06-24 12:50 | NUR ---
CERTIFIED FLIGHT INSTRUCTOR AT BEDSIDE.
--- NOTE | 2017-06-24 13:47 | NUR ---
pt able to answers question more aqake and oriented at this time;
--- NOTE | 2017-06-24 13:51 | NUR ---
PT ABLE TO WALK STRAIGHT NOW;WILL ARRANGE FOR A TRANSPORT;
--- NOTE | 2017-06-24 14:13 | NUR ---
Patient discharged with v/s stable. Written and verbal after care instructions given and explained. Patient verbalized understanding. Wheel Chair Assisted with to car. All questions addressed prior to discharge. Advised to follow up with PMD.Pt will be curing pickling packer in the lobby by a fire truck driver to take pt home;realtives unable to curing pickling packer pt in er at this time;
[2017-06-24 14:14] VITALS: BP 164/88
== END 2017-06-24 14:13 | disposition home or self-care (01) ==
LOC: MED 03:25
DX: F19.10 Other psychoactive substance abuse, uncomplicated (principal); E11.9 Type 2 diabetes mellitus without complications; I10 Essential (primary) hypertension; Z88.6 Allergy status to analgesic agent; Z88.1 Allergy status to other antibiotic agents
CPT/HCPCS: 36415; 70450; 80053; 80305; 82948; 85025; 96365; 96366; 96372; 96375; 99285; A9153; G0480; G0482; J0360; J1630; J2060; J3411; J3475; J3490; J7030

== ENCOUNTER 2017-07-03 13:25 | Emergency (ER) | payer OTHER ==
[~2017-07-03] VITALS: Ht 167.6 cm; Wt 68.0 kg
[2017-07-03 13:26] VITALS: BP 153/93
--- NOTE | 2017-07-03 13:29 | NUR ---
PT BIBA TO [facility]
[2017-07-03] MEDS ORDERED: ATEN25TA7 PO (13:36)
[2017-07-03] MEDS ORDERED: SIMV20TA1 PO (13:37)
[2017-07-03] MEDS ORDERED: ENAL2.5T7 PO (13:38)
[2017-07-03] MEDS ORDERED: PAM25 PO (13:39)
--- NOTE | 2017-07-03 13:44 | NUR ---
62/M BIBA for evaluatio of bilateral hand and feel pain x2 days. Denies injuyr or fall. AOX4, pt states he is able to walk but appears unsteady. Patient reports "I think my medications are contaminated." Per EMS patient has been non compliant with medications. No distress noted at this time.
--- NOTE | 2017-07-03 13:55 | NUR ---
Dr. Curtis evaluating patient at this time.
[2017-07-03] MEDS ORDERED: KETOROLAC 60 MG/2 ML VIAL IM ONE (14:15)
[2017-07-03] MEDS ORDERED: DEXAMETHASONE 10 MG/ML VIAL IM ONE (14:15)
--- NOTE | 2017-07-03 16:00 | NUR ---
patient observed sitting in his chair. patient states the pain is decreasing at this moment and inquiring about lab results. update given to patient, verbalizes understandig. will continue to montior.
--- NOTE | 2017-07-03 17:50 | NUR ---
Patient discharged with v/s stable. Written and verbal after care instructions given and explained. Patient alert, oriented and verbalized understanding of instructions. Wheel Chair Assisted wto taxicab. All questions addressed prior to discharge. ID band removed. Patient advised to follow up with PMD. Rx of Voltaren XR given. Patient educated on indication of medication including possible reaction and side effects. Opportunity to ask questions provided and answered.
== END 2017-07-03 17:50 | disposition home or self-care (01) ==
LOC: MED 13:25
DX: M25.542 Pain in joints of left hand (principal); M25.541 Pain in joints of right hand; M25.572 Pain in left ankle and joints of left foot; M25.571 Pain in right ankle and joints of right foot; M10.9 Gout, unspecified; E11.9 Type 2 diabetes mellitus without complications; I10 Essential (primary) hypertension; F32.9 Major depressive disorder, single episode, unspecified; F20.9 Schizophrenia, unspecified; Z79.84 Long term (current) use of oral hypoglycemic drugs; Z79.899 Other long term (current) drug therapy; Z88.8 Allergy status to other drugs, medicaments and biological substances
CPT/HCPCS: 36415; 82948; 84550; 96372; 99284; J1100; J1885

== ENCOUNTER 2017-08-12 19:31 | Inpatient (IN) | payer OTHER ==
[~2017-08-12] VITALS: Ht 167.6 cm; Wt 70.8 kg
[~2017-08-12 19:31] MED LIST changes: +ATEN25TA7 PO; +ENAL2.5T7 PO; +PAM25 PO; +SIMV20TA1 PO
[2017-08-12 19:43] VITALS: BP 154/75
--- NOTE | 2017-08-12 19:51 | NUR ---
patient to bed 3
--- NOTE | 2017-08-12 19:55 | NUR ---
PATIENT PRESENTS TO ED WITH testicular pain, swelling, and edema to lower extremities for unknown amount of time per patient. PT DENIES N/V/D; SKIN IS PINK/WARM/DRY; AAOX4 WITH EVEN AND STEADY GAIT; LUNGS CLEAR BL; HR EVEN AND REGULAR; PT DENIES ANY FEVER, CP, SOB, OR COUGH AT THIS TIME; PATIENT STATES PAIN OF 10/10 AT THIS TIME; VSS; PATIENT POSITIONED FOR COMFORT; HOB ELEVATED; BEDRAILS UP X2; BED DOWN. ER MD MADE AWARE OF PT STATUS.
[2017-08-12] MEDS ORDERED: MORPHINE SULFATE 4 MG/ML SYR IVP ONE ×2 (20:00→23:10)
[2017-08-12] MEDS ORDERED: FUROSEMIDE 40 MG/4 ML VIAL IVP ONE (20:00)
[2017-08-12 20:31] LABS: BASOPHILS % (AUTO) 0.4 % (0.0-2.0); EOSINOPHILS # (AUTO) 0.1 K/uL (0-0.4); EOSINOPHILS % (AUTO) 2.1 % (0.0-4.0); HEMATOCRIT 32.3 % (36-52); HEMOGLOBIN 10.3 g/dL (12.0-18.0); LYMPHOCYTES # (AUTO) 1.1 K/uL (2.0-11.5); LYMPHOCYTES % (AUTO) 19.4 % (20.5-51.1); MEAN CORPUSCULAR HEMOGLOBIN 27 pg (27-31); MEAN CORPUSCULAR HGB CONC 32 g/dL (33-37); MEAN CORPUSCULAR VOLUME 85.4 fL (80-94); MONOCYTES # (AUTO) 0.4 K/uL (0.8-1.0); MONOCYTES % (AUTO) 6.6 % (1.7-9.3); NEUTROPHILS % (AUTO) 71.5 % (42.2-75.2); PLATELET COUNT (AUTO) 197 K/uL (140-450); RED BLOOD CELL COUNT(AUTO) 3.78 MIL/uL (4.20-6.10); RED CELL DISTRIBUTION WIDTH 15.9 % (11.6-13.7); WHITE BLOOD COUNT (AUTO) 5.6 K/uL (4.8-10.8)
[2017-08-12 20:43] LABS: CARBON DIOXIDE 24.5 mmol/L (21-32); CREATININE 1.4 mg/dL (0.7-1.3); POTASSIUM 4.5 mmol/L (3.5-5.1)
[2017-08-12 20:46] LABS: CHOL/HDL RATIO 2.6 (1-4.5)
[2017-08-12 20:50] LABS: ALBUMIN 3.4 g/dL (3.4-5.0); TOTAL BILIRUBIN 0.3 mg/dL (0.0-1.0)
[2017-08-12] MEDS ORDERED: HYDROcodone/APAP 5/325 MG 1 TAB TAB PO PRN (23:40)
[2017-08-12] MEDS ORDERED: DEXTROSE 50% 50 ML SYR IVP PRN (23:40)
[2017-08-12] MEDS ORDERED: ACETAMINOPHEN 325 MG TAB PO PRN (23:40)
[2017-08-12] MEDS ORDERED: ONDANSETRON 4 MG/2 ML VIAL IVP PRN (23:40)
[2017-08-12] MEDS ORDERED: ALBUTEROL SULFATE/IPRATROPIU 3 ML SOL IH PRN (23:50)
--- NOTE | 2017-08-12 23:50 | NUR ---
RECEIVED FROM ER PER DARIO AWAKE AND ALERT. NO SOB. DENIES PAIN AT THIS TIME. VERBALIZES WELL. ON TELEMETRY MONITORING. CALL LIGHT WITH IN REACH AND CARE PLANS FOR THE NIGHT DISCUSSED WITH HIM. PT. WILL BE ASSISTED WITH ADLS RT WITH SWOLLEN SCROTUM AND LOWER EXTREMITIES WITH EDEMA +2. RAPID RESPONSE MECHANISM EXPLAINED TO HIM. NO S/S OF HYPERGLYCEMIA/HYPOGLYCEMIA NOTED. SKIN WITH SCARS AND FRESH SCAB TO KNEES. RAMOS CATHETER IN PLACE WITH YELLOW URINE DRAINING WELL.
--- NOTE | 2017-08-12 23:52 | NUR ---
Pt transferred to Tele 120A via BED.
--- NOTE | 2017-08-13 00:19 | NUR ---
Pt report given to ANU BONILLA. Transfer of care at this time.
[2017-08-13 00:21] VITALS: BP 152/72
[2017-08-13 00:57] LABS: BARBITURATE, URINE NEG. ng/ml (NEG <=200); BENZODIAZEPINE, URINE NEG. ng/mL (NEG <=200); CANNABINOID, URINE NEG. ng/mL (NEG <=50); COCAINE, URINE NEG. ng/mL (NEG <=300); OPIATE, URINE NEG. ng/mL (NEG <=2000); PHENCYCLIDINE SCREEN,URINE NEG. ng/mL (NEG <=25)
[2017-08-13] MEDS: HYDROcodone/APAP 5/325 MG 1 TAB TAB PO PRN ×4 (03:19→21:39)
[2017-08-13 04:00] VITALS: BP 148/67
[2017-08-13 04:45] LABS: ALBUMIN 2.8 g/dL (3.4-5.0); ANION GAP 8.7 (8-16); CARBON DIOXIDE 28.4 mmol/L (21-32); CREATININE 1.2 mg/dL (0.7-1.3); MAGNESIUM 1.9 mg/dL (1.8-2.4); POTASSIUM 4.1 mmol/L (3.5-5.1); TOTAL BILIRUBIN 0.2 mg/dL (0.0-1.0)
[2017-08-13 04:56] LABS: CREATINE KINASE MB 7.5 ng/mL (0-3.6)
[2017-08-13] MEDS: GABAPENTIN 300 MG CAP PO SCH ×3 (05:00→21:03)
[2017-08-13] MEDS: BLOOD GLUCOSE MONITORING 1 DEV DEV FS SCH ×4 (06:05→21:00)
--- NOTE | 2017-08-13 07:30 | NUR ---
RECEIVED PT REPORT FROM CHAIN FORMING MACHINE OPERATOR NURSE. PT SLEEPING, EASILY AROUSED, OX4. PT IS ON TELE. RAMOS CATH IN PLACE. DRAINING CLEAR YELLOW URINE. IV 20G, SL, FLUSHED, ASYMPTOMATIC. VITALS SIGNS TAKEN. NO S/S OF ACUTE DISTRESS. SCROTUM HAS SOME SWELLING. C/O PAIN OF THE FINGERS, LEG AND KNEE /10. WILL ADMINISTER PAIN MEDS ORDERED. PT REORIENTED TO THE ROOM. CALL LIGHT WITHIN REACH. POC DISCUSSED. PT VERBALIZED UNDERSTANDING. WILL CONTINUE TO MONITOR.
[2017-08-13 08:00] VITALS: BP 144/67
[2017-08-13] MEDS: POTASSIUM CHLORIDE 10 MEQ TABER PO SCH (08:26)
[2017-08-13] MEDS: ENALAPRIL 2.5 MG TAB PO SCH (08:27)
[2017-08-13] MEDS: FUROSEMIDE 40 MG/4 ML VIAL IVP SCH ×2 (08:28→21:00)
[2017-08-13] MEDS: ASPIRIN 81 MG TAB.CHEW PO SCH (08:28)
[2017-08-13] MEDS: ENOXAPARIN 40 MG/0.4 ML SYR SUBQ SCH (08:38)
[2017-08-13] MEDS ORDERED: ARIPiprazole 10 MG TAB PO SCH (09:00)
[2017-08-13] MEDS ORDERED: ATENOLOL 25 MG TAB PO SCH (09:00)
--- NOTE | 2017-08-13 10:33 | NUR ---
PATIENT HAS BEEN SCREENED AND CATEGORIZED MODERATE NUTRITION RISK. PATIENT WILL BE SEEN WITHIN 3-5 DAYS OF ADMISSION. 08/15/17 - 08/17/[address]
[2017-08-13 12:00] VITALS: BP 89/53
--- NOTE | 2017-08-13 12:30 | NUR ---
PT IS EATING LUNCH, NO S/S OF ACUTE DISTRESS. BREATHING EVEN AND UNLABORED. RR 18.
[2017-08-13] MEDS: INSULIN LISPRO SLIDING SCALE 100 UNITS/ML VIAL SUBQ PRN (12:46)
[2017-08-13 13:11] LABS: CREATINE KINASE MB 4.9 ng/mL (0-3.6)
--- NOTE | 2017-08-13 13:30 | NUR ---
MADE DR YOUNG AWARE OF THE LATEST VITALS AND DROP OF HR AND BP.
--- NOTE | 2017-08-13 15:30 | NUR ---
PT IS DROWSY AND SLEEPY AT THIS TIME. WOKE PT UP BY NAME, PT DRANK SOME WATER. PT STAYED AWAKE FOR A LITTLE BIT AND WENT BACK TO SLEEP. SKIN WARM TO TOUCH. PULSE RATE IS LOW, NORMAL STRENGTH. BREATHING EVEN AND UNLABORED. RR 16.
--- NOTE | 2017-08-13 15:43 | NUR ---
CM NOTE INITIAL REVIEW FAXED TO [facility] / FAX# [phone], ATTN: RANDI #[phone]
[2017-08-13 16:00] VITALS: BP 97/50
--- NOTE | 2017-08-13 16:00 | NUR ---
US TECH IS DOING A PROCEDURE, US SCROTUM. VITALS TAKEN. BLOOD SUGAR 140.
--- NOTE | 2017-08-13 19:25 | NUR ---
ENDORSED TO THE NEXT RN FOR CONTINUITY OF CARE. SLEPT WELL THIS SHIFT. NO COMPLAINTS DONE. ABLE TO VERBALIZE NEEDS WELL. Addendum: 08/15/17 at 2007 by Marta Aviles RN CHARTING FOR 08/12/2017 07:30-
--- NOTE | 2017-08-13 19:38 | NUR ---
Pt is currently asleep,verbally responsive to stimulation. Pt is on RA sat98% HR38 staff aware (this is pt baseline per petrophysical engineer).
--- NOTE | 2017-08-13 19:40 | NUR ---
RECEIVED PATIENT LYING IN BED. REPORT GIVEN BY AM NURSE HR IS LOW, WITH CONFUSION. WILL CONTINUE TO MONITOR.
--- NOTE | 2017-08-13 19:40 | NUR ---
ENDORSED PT TO ENTERPRISE SERVICES MANAGER RN. PT IN STABLE CONDITION. HR STILL LOW, STILL DROWSY. PT AWAKE TO NAME. ORIENTEDX4.
[2017-08-13 20:00] VITALS: BP 103/55
[2017-08-13] MEDS ORDERED: SIMVASTATIN 20 MG TAB PO SCH (21:00)
[2017-08-13] MEDS ORDERED: NORTRIPTYLINE 25 MG CAP PO SCH (21:00)
--- NOTE | 2017-08-13 21:15 | NUR ---
PAGE DR. YOUNG AND ANTI TANK MISSILEMAN STATED THAT THE ON- CALL DRShanti IS DR. HOWELL. SENT MESSAGE ABOUT PATIENT LOW HR. CALL BACK NUMBER GIVEN.
--- NOTE | 2017-08-13 21:30 | NUR ---
RECEIVED CALL FROM DR. HOWELL EXPLAINED THAT PATIENT HAS LOW HR OF 39. PATIENT WANT PAIN MEDICATION. DR. HOWELL APPROVED TO HAVE NORCO FOR PAIN. LASIX HOLD BECAUSE OF LOW BP PER DR. HOWELL.
--- NOTE | 2017-08-13 23:20 | NUR ---
SEEN PATIENT ASLEEP. BED IN LOW POSITION. CALL LIGHTS WITHIN REACH. WILL CONTINUE TO MONITOR.
[2017-08-14] VITALS: BP 155/71
--- NOTE | 2017-08-14 02:05 | NUR ---
SEEN PATIENT ASLEEP IN BED BUT EASILY AROUSABLE. CALL LIGHTS WITHIN REACH. WILL CONTINUE TO MONITOR.
[2017-08-14 04:00] VITALS: BP 163/78
--- NOTE | 2017-08-14 05:20 | NUR ---
SEEN PATIENT LYING IN BED. FALL PRECAUTION IMPLEMENTED. CALLIGHT WITHIN REACH.
[2017-08-14] MEDS: GABAPENTIN 300 MG CAP PO SCH ×2 (05:30→13:29)
[2017-08-14] MEDS: HYDROcodone/APAP 5/325 MG 1 TAB TAB PO PRN ×2 (05:55→10:35)
[2017-08-14] MEDS: BLOOD GLUCOSE MONITORING 1 DEV DEV FS SCH ×2 (05:55→12:18)
[2017-08-14 06:48] LABS: BASOPHILS % (AUTO) 0.3 % (0.0-2.0); EOSINOPHILS # (AUTO) 0.2 K/uL (0-0.4); EOSINOPHILS % (AUTO) 3.2 % (0.0-4.0); HEMATOCRIT 31.8 % (36-52); HEMOGLOBIN 10.2 g/dL (12.0-18.0); LYMPHOCYTES # (AUTO) 1.2 K/uL (2.0-11.5); MEAN CORPUSCULAR HEMOGLOBIN 28 pg (27-31); MEAN CORPUSCULAR HGB CONC 32 g/dL (33-37); MEAN CORPUSCULAR VOLUME 85.7 fL (80-94); MONOCYTES # (AUTO) 0.4 K/uL (0.8-1.0); MONOCYTES % (AUTO) 7.5 % (1.7-9.3); PLATELET COUNT (AUTO) 184 K/uL (140-450); RED BLOOD CELL COUNT(AUTO) 3.71 MIL/uL (4.20-6.10); RED CELL DISTRIBUTION WIDTH 16.1 % (11.6-13.7); WHITE BLOOD COUNT (AUTO) 4.7 K/uL (4.8-10.8)
--- NOTE | 2017-08-14 07:20 | NUR ---
RECEIVED PT REPORT FROM PHYSICAL SCIENCE TECHNICIAN NURSE. PT SLEEPING, EASILY AROUSED, OX4. PT IS ON TELE. RAMOS CATH IN PLACE. DRAINING CLEAR YELLOW URINE. IV NOTED TO THE RIGHT HAND 20G, SL, FLUSHED, ASYMPTOMATIC. VITALS SIGNS TAKEN. NO S/S OF ACUTE DISTRESS. SCROTUM HAS SOME SWELLING, LESS THAN YESTERDAY. WILL ADMINISTER PAIN MEDS ORDERED. CALL LIGHT WITHIN REACH. POC DISCUSSED. PT VERBALIZED UNDERSTANDING. WILL CONTINUE TO MONITOR.
--- NOTE | 2017-08-14 07:21 | NUR ---
ENDORSED PATIENT TO AM SHIFT NURSE FOR CONTINUITY OF CARE. PATIENT IN STABLE CONDITION.
[2017-08-14 07:24] LABS: ALBUMIN 2.8 g/dL (3.4-5.0); ANION GAP 9.6 (8-16); CARBON DIOXIDE 26.9 mmol/L (21-32); CREATININE 1.5 mg/dL (0.7-1.3); PHOSPHORUS 3.2 mg/dL (2.5-4.9); POTASSIUM 4.5 mmol/L (3.5-5.1); TOTAL BILIRUBIN 0.2 mg/dL (0.0-1.0)
[2017-08-14 08:00] VITALS: BP 156/68
[2017-08-14] MEDS: ENALAPRIL 2.5 MG TAB PO SCH (08:56)
[2017-08-14] MEDS: FUROSEMIDE 40 MG/4 ML VIAL IVP SCH (08:57)
[2017-08-14] MEDS: ASPIRIN 81 MG TAB.CHEW PO SCH (08:57)
[2017-08-14] MEDS: POTASSIUM CHLORIDE 10 MEQ TABER PO SCH (08:57)
[2017-08-14] MEDS ORDERED: ATENOLOL 25 MG TAB PO SCH (09:00)
[2017-08-14 09:04] LABS: BARBITURATE, URINE NEG. ng/ml (NEG <=200); BENZODIAZEPINE, URINE NEG. ng/mL (NEG <=200); CANNABINOID, URINE NEG. ng/mL (NEG <=50); COCAINE, URINE NEG. ng/mL (NEG <=300); OPIATE, URINE POS. ng/mL (NEG <=2000)
[2017-08-14] MEDS: ENOXAPARIN 40 MG/0.4 ML SYR SUBQ SCH (09:19)
--- NOTE | 2017-08-14 10:05 | NUR ---
SPOKE WITH DR YOUNG OVER THE PHONE. MADE AWARE THAT PT STATED HE TAKES 15MG ABILIFY. MD IS OK TO CHANGE ABILIFY TO 15MG.
--- NOTE | 2017-08-14 10:10 | NUR ---
C/O PAIN OF SCROTUM, FINGERS, LEG AND KNEE 12/18, WILL ADMINISTER PAIN MEDS ORDERED.
[2017-08-14 12:00] VITALS: BP 144/57
--- NOTE | 2017-08-14 12:20 | NUR ---
PT EATING LUNCH BY HIMSELF. NO S/S OF ACUTE DISTRESS.
[2017-08-14] MEDS: INSULIN LISPRO SLIDING SCALE 100 UNITS/ML VIAL SUBQ PRN (13:29)
[2017-08-14] MEDS ORDERED: ATEN25TA7 PO (13:39)
[2017-08-14] MEDS ORDERED: FURO-572 PO (13:39)
--- NOTE | 2017-08-14 13:52 | NUR ---
RAMOS DC'D, PT TOLERATED. NO BLEEDING NOTED.
[2017-08-14] MEDS ORDERED: CEPH250C16 PO ×2 (14:43→14:45)
--- NOTE | 2017-08-14 15:05 | NUR ---
PT DISCHARGED PER MD ORDER. DISCHARGED INSTRUCTIONS AND MEDICATION TEACHING GIVEN. PT VERBALIZED UNDERSTANDING. BUS PASS AND [facility] LIST PROVIDED. DENIES SOB, NAUSEA, DIZZINESS AT THIS TIME. IV DC'D, TIP INTACT, PRESSURE APPLIED. PT SIGNED ALL DISCHARGE PAPER. PT DRESSED UP AND STARTED PACKING HIS BELONGINGS. PT LEFT IN STABLE CONDITION. SALES COMMISSIONS ANALYST WHEELED PT TO LOBBY.
[2017-08-14 15:35] LABS: PHENCYCLIDINE SCREEN,URINE NEG. ng/mL (NEG <=25)
--- NOTE | 2017-08-14 15:58 | NUR ---
FAXED CONCURRENT REVIEW TO [facility] [phone] PHONE RANDI [phone]
[2017-08-15] MEDS ORDERED: ARIPiprazole 10 MG TAB PO SCH (09:00)
== END 2017-08-14 15:00 | disposition home or self-care (01) | DRG 194 ==
LOC: MED 19:31 → MTU 23:46
PROVIDERS: ADMIT Hospitalist; ATTEND Hospitalist
DX: I13.0 Hypertensive heart and chronic kidney disease with heart failure and stage 1 through stage 4 chronic kidney disease, or unspecified chronic kidney disease (principal); N17.9 Acute kidney failure, unspecified; E11.42 Type 2 diabetes mellitus with diabetic polyneuropathy; I27.20 Pulmonary hypertension, unspecified; I50.810 Right heart failure, unspecified; E78.00 Pure hypercholesterolemia, unspecified; F39 Unspecified mood [affective] disorder; E78.5 Hyperlipidemia, unspecified; F31.9 Bipolar disorder, unspecified; M10.9 Gout, unspecified; N50.89 Other specified disorders of the male genital organs; N50.82 Scrotal pain; Z88.8 Allergy status to other drugs, medicaments and biological substances; F17.210 Nicotine dependence, cigarettes, uncomplicated; Z79.4 Long term (current) use of insulin; Z28.21 Immunization not carried out because of patient refusal; Z79.899 Other long term (current) drug therapy; I50.42 Chronic combined systolic (congestive) and diastolic (congestive) heart failure; N18.9 Chronic kidney disease, unspecified
CPT/HCPCS: 36415; 51702; 71045; 76870; 80053; 80305; 82140; 82550; 82553; 82948; 83735; 83880; 84100; 84484; 85025; 85379; 87081; 93005; 96374; 96375; 96376; 99285; J1650; J1815; J1940; J2270; Q0092